=== PATIENT | male | born 1980 ===

== ENCOUNTER 2017-12-30 23:16 | Emergency (ER) | payer SELFPAY ==
[2017-12-31 00:06] VITALS: BP 115/78; PULSE 75; RESP 16; TEMP 98.4; O2SAT 100
--- NOTE | 2017-12-31 00:54 | C.PDOC ---
Time Seen by Provider: 12/31/17 00:53 Chief Complaint (Nursing): Abdominal Pain Past Medical History Vital Signs: Last Vital Signs Temp 98.4 F 12/31/17 00:02 Pulse 75 12/31/17 00:02 Resp 16 12/31/17 00:02 BP 115/78 12/31/17 00:02 Pulse Ox 100 12/31/17 00:02 - Social History Hx Alcohol Use: Yes Hx Substance Use: No - Immunization History Hx Tetanus Toxoid Vaccination: No Hx Influenza Vaccination: No Hx Pneumococcal Vaccination: No ED Course And Treatment O2 Sat by Pulse Oximetry: 100 Disposition Counseled Patient/Family Regarding: Studies Performed, Diagnosis - Disposition Disposition Time: 00:53
== END 2017-12-31 00:50 | disposition left against medical advice (07) ==
LOC: C.ER 23:16
DX: Z02.89 Encounter for other administrative examinations (principal); R10.9 Unspecified abdominal pain